=== PATIENT | female | born 1970 | race Asian ===

== ENCOUNTER 2024-04-04 12:46 | Outpatient (RCR) | payer OTHER | END 2024-04-13 | LOC: PT 12:46 | PROVIDERS: ATTEND Specialist | DX: M47.816 Spondylosis without myelopathy or radiculopathy, lumbar region (principal); M70.62 Trochanteric bursitis, left hip; R53.81 Other malaise; M62.81 Muscle weakness (generalized); R26.2 Difficulty in walking, not elsewhere classified ==

== ENCOUNTER 2024-04-18 13:51 | Outpatient (RCR) | payer OTHER | END 2024-05-13 | LOC: PT 13:51 | PROVIDERS: ATTEND Specialist | DX: M47.816 Spondylosis without myelopathy or radiculopathy, lumbar region (principal); M70.62 Trochanteric bursitis, left hip; R53.81 Other malaise; M62.81 Muscle weakness (generalized); R26.2 Difficulty in walking, not elsewhere classified ==

== ENCOUNTER → 2024-06-13 | Outpatient (RCR) | payer OTHER | LOC: PT 05-16 08:41 | PROVIDERS: ATTEND Specialist | DX: M47.816 Spondylosis without myelopathy or radiculopathy, lumbar region (principal); M70.62 Trochanteric bursitis, left hip; R53.81 Other malaise; M62.81 Muscle weakness (generalized); R26.2 Difficulty in walking, not elsewhere classified ==

== ENCOUNTER 2024-07-13 17:00 | Outpatient (RCR) | payer OTHER | END 2024-07-14 | LOC: PT 17:00 | PROVIDERS: ATTEND Specialist | DX: M47.816 Spondylosis without myelopathy or radiculopathy, lumbar region (principal); M70.62 Trochanteric bursitis, left hip; R53.81 Other malaise; M62.81 Muscle weakness (generalized); R26.2 Difficulty in walking, not elsewhere classified ==